=== PATIENT | male | born 1985 | race Caucasian/White ===

== ENCOUNTER 2017-07-04 16:59 | Emergency (ER) | payer SELFPAY ==
[2017-07-04] MEDS ORDERED: 0.9 % SODIUM CHLORIDE 1,000 ML BAG IV ONE (17:25)
[2017-07-04] MEDS ORDERED: ACETAMINOPHEN 1,000 MG/100 ML BTL IVPB ONE (17:30)
--- NOTE | 2017-07-04 17:32 | Emergency Department Record ---
History of Present Illness - General Chief complaint: Male Urogenital Problem Stated complaint: SWOLLEN TESTICLE Time Seen by Provider: 07/04/17 17:19 Source: Patient Mode of Arrival: Ambulatory Limitations: No limitations - History of Present Illness Initial comments: 31 yo male presents with right testicular pain and swelling. The onset was 2 days ago. He denies any trauma. The onset and progression have be very gradual. He was unaware of any fevers. He denies any difficulty with urination. No dysuria. No changes in bowel movements. No diarrhea. No retention. He reports a history of similar several years ago but he is unsure of the diagnosis. No rash. The left testicle is essentially not symptomatic. PCP Wulff. JOHNSON Complaint: Testicle pain Onset/Timin -: Days(s) Location: Right testicle Severity: Moderate Severity scale (1-10): 8 Quality: Sharp, Stabbing Consistency: Constant Improves with: None Worsens with: None Reports: Swelling, Other - Related Data Previous Rx's Medication Instructions Recorded Doxycycline Hyclate [Doxycycline] 100 mg PO BID #20 cap 07/04/17 Hydrocodone/Acetaminophen [[place] 1 tab PO Q6H PRN #15 tab 07/04/17 5mg/325mg] Ibuprofen [Motrin 600Mg] 600 mg PO Q6H #25 tablet 07/04/17 Allergies Allergy/AdvReac Type Severity Reaction Status Date / Time No Known Drug Allergies Allergy Verified 05/03/16 15:05 Travel Screening - Travel/Exposure Within Last 30 Days Have you traveled within the last 30 days?: No - Travel/Exposure Within Last Year Have you traveled outside the [place] in the last year?: No - Additonal Travel Details Have you been exposed to anyone with a communicable illness?: No - Travel Symptoms Symptom Screening: None Review of Systems Constitutional: Reports: Chills, Fever. Denies: Malaise, Weakness Eyes: Denies: Eye discharge, Eye pain, Photophobia, Vision change ENT: Denies: Congestion, Throat pain Respiratory: Denies: Cough, Dyspnea, Hemoptysis, Stridor, Wheezes Cardiovascular: Denies: Chest pain, Palpitations, Syncope Endocrine: Denies: Fatigue Gastrointestinal: Reports: Abdominal pain, Nausea. Denies: Diarrhea, Vomiting Genitourinary: Reports: Testicular pain. Denies: Dysuria, Frequency, Hematuria , Urgency Musculoskeletal: Denies: Arthralgia, Back pain, Myalgia, Neck pain Skin: Denies: Bruising, Change in color, Rash Neurological: Denies: Numbness, Weakness Psychiatric: Denies: Anxiety Hematological/Lymphatic: Denies: Blood Clots, Easy bleeding, Easy bruising, Swollen glands Past Medical History - SOCIAL HISTORY Smoking Status: Former smoker Alcohol Use: None Drug Use: None - RESPIRATORY Hx Respiratory Disorders: No - CARDIOVASCULAR Hx Cardio Disorders: No - NEURO Hx Neuro Disorders: Yes Comment:: ADD - GI Hx GI Disorders: Yes Hx Obstructive Bowel: Yes - Hx Genitourinary Disorders: No - ENDOCRINE Hx Endocrine Disorders: No - MUSCULOSKELETAL Hx Musculoskeletal Disorders: No - PSYCH Hx Psych Problems: Yes Hx Anxiety: Yes - HEMATOLOGY/ONCOLOGY Hx Hematology/Oncology Disorders: No Family Medical History Any Significant Family History?: No Physical Exam - General General Appearance: Alert, Oriented x3, Cooperative, No acute distress Limitations: No limitations - Head Head exam: Atraumatic, Normocephalic, Normal inspection - Eye Eye exam: Normal appearance. negative: Conjunctival injection, Periorbital swelling - ENT ENT exam: Normal exam, Mucous membranes moist Ear exam: Normal external inspection Nasal Exam: Normal inspection Mouth exam: Normal external inspection Teeth exam: Normal inspection - Neck Neck exam: Normal inspection - Respiratory Respiratory exam: Normal lung sounds bilaterally. negative: Chest wall tenderness, Rhonchi, Stridor, Wheezes - Cardiovascular Cardiovascular Exam: Normal rhythm, Normal heart sounds, Tachycardia - GI/Abdominal GI/Abdominal exam: Soft. negative: Distended, Guarding, Rebound, Rigid, Tenderness - exam: Circumcision, Scrotal swelling (mild right sided scrotal swelliing, intact skin, the testicle on palpation feels mildly enlarged, it is mobile, with mild pain, cremasteric reflex is equivocal bilateral, left testicle is non tender) - Extremities Extremities exam: Normal inspection. negative: Tenderness - Back Back exam: Denies: CVA tenderness (R), CVA tenderness (L), Paraspinal tenderness , Rash noted, Tenderness - Neurological Neurological exam: Alert, Normal gait, Oriented X3 - Psychiatric Psychiatric exam: Normal affect, Normal mood. negative: Agitated, Anxious - Skin Skin exam: Dry, Intact, Normal color, Warm Course Vital Signs 07/04/17 17:06 Temperature 101.6 F H Pulse Rate 114 H Respiratory 20 Rate Blood Pressure 134/86 Pulse Ox 96 - Reevaluation(s) Reevaluation #1: The patient was seen and examined UA, US, labs and medications ordered His pain is mild at this time 07/04/17 17:32 Reevaluation #2: CBC, CMP, and UA were reviewed No acute changes 07/04/17 18:43 Reevaluation #3: Flow noted to both testees with bilateral hydro and varicoceles. Minimal increased flow on the right Clinically this may represents epididymitis He will be place on NSAIDS and antibiotic with recommendation for scrotal support with supportive underwear 07/04/17 19:27 Medical Decision Making - Lab Data Result diagrams: 07/04/17 17:47 07/04/17 17:47 Disposition Disposition: Discharge Clinical Impression: Epididymitis Disposition: Home, Self-Care Condition: (1) Good Instructions: Epididymitis (ED) Additional Instructions: Return tomorrow for a recheck Return sooner if worse, increased pain, or any new concerns Wear supportive underwear Take the antibiotics until gone Call your doctor tomorrow for close follow up Prescriptions: Doxycycline Hyclate [Doxycycline] 100 mg PO BID #20 cap Hydrocodone/Acetaminophen [[place] 5mg/325mg] 1 tab PO Q6H PRN #15 tab PRN Reason: Pain - General Ibuprofen [Motrin 600Mg] 600 mg PO Q6H #25 tablet Forms: Patient Portal Access Time of Disposition: 19:33 Quality - Quality Measures Quality Measures: N/A - Blood Pressure Screening Does Patient Have Any of the Following: No Blood Pressure Classification: Pre-Hypertensive BP Reading Systolic Measurement: 134 Diastolic Measurement: 86 Screening for High Blood Pressure: < Pre-Hypertensive BP, F/U Documented > [ G8950] Pre-Hypertensive Follow-up Interventions: Referral to alternative/primary care provider.
[2017-07-04 17:57] LABS: BASO % 0.5 % (0-6); EOS % 0.7 % (0-6); GRAN % 67.4 % (47-80); HEMATOCRIT 41.9 % (42.0-52.0); HEMOGLOBIN 14.8 gm/dl (14.0-18.0); LYMPH % 20.6 % (16-45); MEAN CELL VOLUME 83.3 fl (81-97); MEAN CORPUSCULAR HEMOGLOBIN 29.4 pg (27-33); MEAN CORPUSCULAR HGB CONC 35.3 g/dl (32-36); MEAN PLATELET VOLUME 10.2 fl (7.4-10.4); MONO % 10.8 % (0-9); PLATELET COUNT 182 K/uL (130-400); RED BLOOD COUNT 5.03 M/uL (4.40-5.70)
[2017-07-04 18:00] LABS: URINE APPEARANCE CLEAR; URINE BILIRUBIN NEGATIVE (NEGATIVE); URINE BLOOD NEGATIVE (NEGATIVE); URINE COLOR YELLOW; URINE GLUCOSE (UA) NEGATIVE (NEGATIVE); URINE KETONE NEGATIVE (NEGATIVE); URINE LEUKOCYTE ESTERASE NEGATIVE (NEGATIVE); URINE NITRITE NEGATIVE (NEGATIVE); URINE PROTEIN NEGATIVE (NEGATIVE); URINE UROBILINOGEN 0.2 E.U./dL (0.20 - 1.00)
[2017-07-04 18:15] LABS: ALB/GLOB RATIO 1.5 (1.1-1.8); ALBUMIN 4.3 g/dL (4.0-5.0); ALKALINE PHOSPHATASE 89 U/L (40-129); ALT/SGPT 43 U/L (<41); AST/SGOT 22 U/L (10.0-50.0); BLOOD UREA NITROGEN 23.9 mg/dL (12.6-42.6); CREATININE 0.8 mg/dL (0.7-1.2); EST GLOMERULAR FILTRATION RATE > 60 mL/min; GLUCOSE,RANDOM 90 mg/dL (74-109); TOTAL PROTEIN 7.1 g/dL (6.6-8.7)
[2017-07-04] MEDS ORDERED: CEFTRIAXONE SODIUM 1 GM in 0.9 % SODIUM CHLORIDE 100ML 100 ML IVPB ONE (18:43)
--- NOTE | 2017-07-05 15:08 | ULTRASOUND REPORT ---
EXAM: SCROTAL ULTRASOUND HISTORY: RIGHT SIDED PAIN. TECHNIQUE: Transverse and longitudinal sonographic images of the testes were obtained. Comparison: None. FINDINGS: The right testi measures 3.3 x 5.5 x 3.1 cm. The left testi measures 2.9 x 5.0 x 3.0 cm. Negative for intratesticular mass. Doppler and spectral analysis with color flow was utilized. Arterial and venous flow to both testes. There are bilateral hydroceles. Low level echoes within the hydrocele suggest slight complexity. Subcentimeter bilateral epididymal head cysts are noted. The epididymides are otherwise unremarkable. Small varicoceles are suggested bilaterally as well. IMPRESSION: SMALL SLIGHTLY COMPLEX BILATERAL HYDROCELES. BILATERAL VARICOCELES ARE ALSO NOTED. BILATERAL SUBCENTIMETER EPIDIDYMAL HEAD CYSTS. NEGATIVE FOR INTRATESTICULAR MASS. ARTERIAL AND VENOUS FLOW TO BOTH TESTES. JOB NUMBER: [id number] [facility]
== END 2017-07-04 19:55 | disposition home or self-care (01) ==
LOC: ER 16:59
DX: N45.1 Epididymitis (principal); N50.811 Right testicular pain
CPT/HCPCS: 76870; 80053; 81003; 85025; 99283; 99284; J7030

== ENCOUNTER 2018-04-11 07:07 | Emergency (ER) | payer BC ==
[2018-04-11] MEDS ORDERED: ONDANSETRON HCL IV 4 MG/2 ML VIAL IVP ONE (07:32)
[2018-04-11] MEDS ORDERED: KETOROLAC 30 MG/ML VIAL IVP ONE (07:32)
--- NOTE | 2018-04-11 07:39 | Emergency Department Record ---
History of Present Illness - General Chief Complaint: Headache Migraine Stated Complaint: MIGRAINE Time Seen by Provider: 04/11/18 07:28 Source: Patient, RN notes reviewed Mode of Arrival: Ambulatory - History of Present Illness Initial Comments: Severe headache for 48 hours and vomiting time two and nausea and some sinus congestion and no history of headaches but he had vertigo 2 weeks ago at [facility] and treated with antivert and no imaging done and he states he has had vertigo symptoms on and off for one year and his balance is off. Complaint: Headache Onset/Timin -: Days(s) Onset Description: Sudden Location: Diffuse Quality: Aching Consistency: Constant Improves With: Nothing Worsens With: None Associated Symptoms: Nausea, Vomiting Treatments Prior to Arrival: Other - Related Data Previous Rx's Medication Instructions Recorded Cyclobenzaprine HCl [Flexeril] 5 mg PO TID #20 tab 04/11/18 Naproxen [Naprosyn] 500 mg PO BID #20 tablet 04/11/18 Allergies Allergy/AdvReac Type Severity Reaction Status Date / Time No Known Drug Allergies Allergy Verified 04/11/18 07:11 Travel Screening - Travel/Exposure Within Last 30 Days Have you traveled within the last 30 days?: No Review of Systems Reviewed: No additional complaints except as noted below Constitutional: Reports: As per HPI. Denies: Chills, Fever, Malaise, Night sweats, Weakness, Weight change Eyes: Reports: As per HPI. Denies: Eye discharge, Eye pain, Photophobia, Vision change ENT: Reports: As per HPI. Denies: Congestion, Dental pain, Ear pain, Epistaxis , Hearing loss, Throat pain Respiratory: Reports: As per HPI. Denies: Cough, Dyspnea, Hemoptysis, Stridor, Wheezes Cardiovascular: Reports: As per HPI. Denies: Arrhythmia, Chest pain, Dyspnea on exertion, Edema, Murmurs, Orthopnea, Palpitations, Paroxysmal nocturnal dyspnea, Rheumatic Fever, Syncope Endocrine: Reports: As per HPI. Denies: Fatigue, Heat or cold intolerance, Polydipsia, Polyuria Gastrointestinal: Reports: As per HPI, Nausea, Vomiting. Denies: Abdominal pain , Constipation, Diarrhea, Hematemesis, Hematochezia, Melena Genitourinary: Reports: As per HPI. Denies: Dysuria, Frequency, Hematuria, Incontinence, Retention, Testicular pain, Testicular mass, Urgency Musculoskeletal: Reports: As per HPI. Denies: Arthralgia, Back pain, Gout, Joint swelling, Myalgia, Neck pain Skin: Reports: As per HPI. Denies: Bruising, Change in color, Change in hair/ nails, Lesions, Pruritus, Rash Neurological: Reports: As per HPI, Headache, Vertigo. Denies: Abnormal gait, Confusion, Numbness, Paresthesias, Seizure, Tingling, Tremors, Weakness Psychiatric: Reports: As per HPI. Denies: Anxiety, Auditory hallucinations, Depression, Homicidal thoughts, Suicidal thoughts, Visual hallucinations Hematological/Lymphatic: Reports: As per HPI. Denies: Anemia, Blood Clots, Easy bleeding, Easy bruising, Swollen glands Past Medical History - SOCIAL HISTORY Smoking Status: Former smoker Alcohol Use: None Drug Use: None - RESPIRATORY Hx Respiratory Disorders: No - CARDIOVASCULAR Hx Cardio Disorders: No - NEURO Hx Neuro Disorders: No - GI Hx GI Disorders: Yes Hx Obstructive Bowel: Yes - Hx Genitourinary Disorders: No - ENDOCRINE Hx Endocrine Disorders: No - MUSCULOSKELETAL Hx Musculoskeletal Disorders: No - PSYCH Hx Psych Problems: Yes Hx Anxiety: Yes - HEMATOLOGY/ONCOLOGY Hx Hematology/Oncology Disorders: No Family Medical History Any Significant Family History?: No Physical Exam - General General Appearance: Alert, Oriented x3, Cooperative, Moderate distress - Head Head exam: Normal inspection - Eye Eye exam: Normal appearance, PERRL Pupils: Normal accommodation - ENT ENT exam: Normal exam, Mucous membranes moist, Normal external ear exam, Normal orophraynx, TM's normal bilaterally Ear exam: Normal external inspection. negative: External canal tenderness Nasal Exam: Normal inspection. negative: Discharge, Sinus tenderness Mouth exam: Normal external inspection, Tongue normal Teeth exam: Normal inspection. negative: Dental caries Throat exam: Normal inspection. negative: Tonsillar erythema, Tonsillar exudate - Neck Neck exam: Normal inspection, Full ROM. negative: Tenderness - Respiratory Respiratory exam: Normal lung sounds bilaterally. negative: Respiratory distress - Cardiovascular Cardiovascular Exam: Regular rate, Normal rhythm, Normal heart sounds - GI/Abdominal GI/Abdominal exam: Soft, Normal bowel sounds. negative: Tenderness - Rectal Rectal exam: Deferred - exam: Deferred - Extremities Extremities exam: Normal inspection, Full ROM, Normal capillary refill. negative: Tenderness - Back Back exam: Reports: Normal inspection, Full ROM. Denies: Muscle spasm, Rash noted, Tenderness - Neurological Neurological exam: Alert, Normal gait, Oriented X3, Reflexes normal - Psychiatric Psychiatric exam: Normal affect, Normal mood - Skin Skin exam: Dry, Intact, Normal color, Warm Course Vital Signs 04/11/18 07:13 Temperature 98.9 F Pulse Rate 81 Respiratory 20 Rate Blood Pressure 145/107 Pulse Ox 98 Medical Decision Making - Data Complexity MDM Data: Labs Ordered and/or Reviewed (glucose 118), X-Ray Ordered and/or Reviewed (CT head negative) - Lab Data Result diagrams: 04/11/18 07:15 04/11/18 07:15 Disposition Clinical Impression: Headache Qualifiers: Headache type: unspecified Headache chronicity pattern: acute headache Intractability: not intractable Qualified Code(s): R51 - Headache Disposition: Home, Self-Care Condition: (1) Good Instructions: Tension Headache (ED), Acute Headache (ED) Additional Instructions: follow up with family Dr Prescriptions: Cyclobenzaprine HCl [Flexeril] 5 mg PO TID #20 tab Naproxen [Naprosyn] 500 mg PO BID #20 tablet Forms: Patient Portal Access Time of Disposition: 08:40 Quality - Quality Measures Quality Measures: N/A - Blood Pressure Screening Does Patient Have Any of the Following: No Blood Pressure Classification: Hypertensive Reading Systolic Measurement: 145 Diastolic Measurement: 107 Screening for High Blood Pressure: < Pre-Hypertensive BP, F/U Documented > [ G8950] Pre-Hypertensive Follow-up Interventions: Referral to alternative/primary care provider.
[2018-04-11] MEDS ORDERED: 0.9 % SODIUM CHLORIDE 1,000 ML BAG IV ONE (07:50)
[2018-04-11 07:53] LABS: BASO % 0.3 % (0-6); EOS % 1.8 % (0-6); GRAN % 57.7 % (47-80); HEMATOCRIT 49.6 % (42.0-52.0); HEMOGLOBIN 17.3 gm/dl (14.0-18.0); LYMPH % 31.2 % (16-45); MEAN CELL VOLUME 84.8 fl (81-97); MEAN CORPUSCULAR HGB CONC 34.9 g/dl (32-36); MEAN PLATELET VOLUME 11.2 fl (7.4-10.4); PLATELET COUNT 238 K/uL (130-400); RED BLOOD COUNT 5.85 M/uL (4.40-5.70); RED CELL DISTRIBUTION WIDTH 13.2 % (11.5-14.5); WHITE BLOOD COUNT W/O DIFF 7.8 K/uL (4.2-12.2)
[2018-04-11 07:54] LABS: MEAN CORPUSCULAR HEMOGLOBIN 29.5 pg (27-33)
[2018-04-11] MEDS ORDERED: 0.9 % SODIUM CHLORIDE 1000ML 1,000 ML IV SCH (08:00)
[2018-04-11 08:02] LABS: BLOOD UREA NITROGEN 14 mg/dL (6-20); CREATININE 0.7 mg/dL (0.7-1.2); EST GLOMERULAR FILTRATION RATE > 60 mL/min
[2018-04-11 08:05] LABS: GLUCOSE,RANDOM 118 mg/dL (74-109)
[2018-04-11] MEDS ORDERED: LORAZEPAM 2 MG/ML VIAL IV ONE (08:27)
[2018-04-11] MEDS ORDERED: ACETAMINOPHEN 500 MG TABLET PO ONE (08:27)
--- NOTE | 2018-04-12 10:37 | CT SCAN REPORT ---
EXAM: CT OF THE BRAIN HISTORY: MIGRAINE. TECHNIQUE: CT of the brain without contrast was obtained. Comparison: None. FINDINGS: The globes are intact. The paranasal sinuses and mastoid air cells are unremarkable. There is no displaced or depressed skull fracture. There is no intra or extraaxial hemorrhage. CT is limited for the evaluation of acute infarct. No CT evidence for large or territorial acute infarct. No mass or midline shift. IMPRESSION: NEGATIVE CT OF THE BRAIN EXAMINATION. JOB NUMBER: [id number] [facility]
== END 2018-04-11 09:11 | disposition home or self-care (01) ==
LOC: ER 07:07
DX: R51 Headache (principal); R11.2 Nausea with vomiting, unspecified; R42 Dizziness and giddiness; Z87.891 Personal history of nicotine dependence
CPT/HCPCS: 99284 ×2; 96374; 96375; 96361; 85025; 80048; 70450; J1885; J2405; J2060; J7030

== ENCOUNTER 2018-09-06 07:19 | Emergency (ER) | payer BC ==
[2018-09-06] MEDS ORDERED: ONDANSETRON 4 MG ODT TABLET SL ONE (07:36)
[2018-09-06] MEDS ORDERED: ONDANSETRON HCL IV 4 MG/2 ML VIAL IVP ONE (07:40)
--- NOTE | 2018-09-06 07:44 | Emergency Department Record ---
History of Present Illness - General Chief Complaint: Headache Migraine Stated Complaint: headache, vommiting Time Seen by Provider: 09/06/18 07:36 Source: Patient Mode of Arrival: Ambulatory - History of Present Illness Initial Comments: The patient got up this morning, and was fine when he got in the shower. He began coughing in the shower and developed a headache in the frontal portion of his head with nausea, and then vomiting. He took a fioricet which he was given by his PCP for his headaches, but he vomited it up. He has been evaluated by his PCP for headaches about 5 months ago He has a normal non-contrast head CT . His at the bedside says he gets these headaches approximately once monthly on the average. The patient denies fevers, chills, stiff neck, rashes , sore throat or other URI symptoms. He also has nausea and dry heaves. MD Complaint: "Migraine" Onset/Timin -: Minutes(s) Onset Description: Sudden Location: Frontal Severity scale (1-10): 10 Quality: Full Consistency: Constant Improves With: Nothing Treatments Prior to Arrival: Migraine medication - Related Data Allergies Allergy/AdvReac Type Severity Reaction Status Date / Time No Known Drug Allergies Allergy Verified 09/06/18 07:29 Travel Screening - Travel/Exposure Within Last 30 Days Have you traveled within the last 30 days?: No - Travel/Exposure Within Last Year Have you traveled outside the [place] in the last year?: No - Additonal Travel Details Have you been exposed to anyone with a communicable illness?: No - Travel Symptoms Symptom Screening: None Review of Systems Reviewed: No additional complaints except as noted below Constitutional: Reports: As per HPI. Denies: Chills, Fever, Malaise, Night sweats, Weakness, Weight change Eyes: Reports: As per HPI. Denies: Eye discharge, Eye pain, Photophobia, Vision change ENT: Reports: As per HPI. Denies: Congestion, Dental pain, Ear pain, Epistaxis , Hearing loss, Throat pain Respiratory: Reports: As per HPI. Denies: Cough, Dyspnea, Hemoptysis, Stridor, Wheezes Cardiovascular: Reports: As per HPI. Denies: Arrhythmia, Chest pain, Dyspnea on exertion, Edema, Murmurs, Orthopnea, Palpitations, Paroxysmal nocturnal dyspnea, Rheumatic Fever, Syncope Endocrine: Reports: As per HPI. Denies: Fatigue, Heat or cold intolerance, Polydipsia, Polyuria Gastrointestinal: Reports: As per HPI. Denies: Abdominal pain, Constipation, Diarrhea, Hematemesis, Hematochezia, Melena, Nausea, Vomiting Genitourinary: Reports: As per HPI. Denies: Dysuria, Frequency, Hematuria, Incontinence, Retention, Testicular pain, Testicular mass, Urgency Musculoskeletal: Reports: As per HPI. Denies: Arthralgia, Back pain, Gout, Joint swelling, Myalgia, Neck pain Skin: Reports: As per HPI. Denies: Bruising, Change in color, Change in hair/ nails, Lesions, Pruritus, Rash Neurological: Reports: As per HPI. Denies: Abnormal gait, Confusion, Headache, Numbness, Paresthesias, Seizure, Tingling, Tremors, Vertigo, Weakness Psychiatric: Reports: As per HPI. Denies: Anxiety, Auditory hallucinations, Depression, Homicidal thoughts, Suicidal thoughts, Visual hallucinations Hematological/Lymphatic: Reports: As per HPI. Denies: Anemia, Blood Clots, Easy bleeding, Easy bruising, Swollen glands Past Medical History - SOCIAL HISTORY Smoking Status: Never smoker Alcohol Use: None Drug Use: None - RESPIRATORY Hx Respiratory Disorders: No - CARDIOVASCULAR Hx Cardio Disorders: No - NEURO Hx Neuro Disorders: No Hx of Migraines: Yes Comment:: ADD - GI Hx GI Disorders: Yes Hx Obstructive Bowel: Yes - Hx Genitourinary Disorders: No - ENDOCRINE Hx Endocrine Disorders: No - MUSCULOSKELETAL Hx Musculoskeletal Disorders: No - PSYCH Hx Psych Problems: Yes Hx Anxiety: Yes - HEMATOLOGY/ONCOLOGY Hx Hematology/Oncology Disorders: No Family Medical History Any Significant Family History?: No Physical Exam - General General Appearance: Alert, Oriented x3, Cooperative, Moderate distress (dry heaves, moderate to severe discomfort over his forehead) - Head Head exam: Normal inspection - Eye Eye exam: Normal appearance, PERRL, EOMI. negative: Conjunctival injection, Nystagmus Pupils: Normal accommodation - ENT ENT exam: Normal exam, Mucous membranes moist, Normal external ear exam, Normal orophraynx, TM's normal bilaterally Ear exam: Normal external inspection. negative: External canal tenderness Nasal Exam: Normal inspection. negative: Discharge, Sinus tenderness Mouth exam: Normal external inspection, Tongue normal Teeth exam: Normal inspection. negative: Dental caries Throat exam: Normal inspection. negative: Tonsillar erythema, Tonsillar exudate - Neck Neck exam: Normal inspection, Full ROM. negative: Lymphadenopathy, Meningismus , Tenderness - Respiratory Respiratory exam: Normal lung sounds bilaterally. negative: Respiratory distress - Cardiovascular Cardiovascular Exam: Regular rate, Normal rhythm, Normal heart sounds - GI/Abdominal GI/Abdominal exam: Soft, Normal bowel sounds. negative: Tenderness - Rectal Rectal exam: Deferred - exam: Deferred - Extremities Extremities exam: Normal inspection, Full ROM, Normal capillary refill. negative: Calf tenderness, Pedal edema, Tenderness - Back Back exam: Reports: Normal inspection, Full ROM. Denies: CVA tenderness (R), CVA tenderness (L), Muscle spasm, Rash noted, Tenderness - Neurological Neurological exam: Alert, CN II-XII intact, Normal gait, Oriented X3. negative : Motor sensory deficit - Psychiatric Psychiatric exam: Normal affect, Normal mood - Skin Skin exam: Dry, Intact, Normal color, Warm Course Vital Signs 09/06/18 07:30 Temperature 97.1 F L Pulse Rate [ 68 Pulse Ox Probe] Respiratory 18 Rate Blood Pressure 171/122 [Left Arm] Pulse Ox 98 - Reevaluation(s) Reevaluation #1: Patient's dry heaves and nausea have resolved. Headache is still present but patient appears more comfortable. 09/06/18 08:23 Reevaluation #2: Patient appears comfortable. His headache is down from initial 10/10 to 7/10, his nausea is resolved. Repeat abdominal exam shows a soft and non-tender abdomen without distention . Blood pressure improved to 126/91.Will give ofirmev and then DC home with a work note. 09/06/18 08:40 09/06/18 08:42 Reevaluation #3: Headache is now down to a 5/10 and nausea continues to be resolved. Will DC home when ofirmev completed. 09/06/18 09:04 Medical Decision Making - Management Options MDM Management: No Additional Work-up Planned Disposition Disposition: Discharge Clinical Impression: Migraine Qualifiers: Migraine type: without aura Status migrainosus presence: without status migrainosus Intractability: not intractable Qualified Code(s): G43.009 - Migraine without aura, not intractable, without status migrainosus Disposition: Home, Self-Care Return To Work/School Note Provided: Yes Condition: (2) Stable Instructions: Migraine Headache (ED) Additional Instructions: Home, rest. Off work today(note given). Fluids. Continue present meds. Follow up with PCP as needed. Forms: Patient Portal Access Quality - Quality Measures Quality Measures: Headache (All Ages) - Headache: Neuroimaging Quality Measure: Measure #419: Overuse of Neuroimaging ICD10 Codes Entered: Yes Neurological Exam: Patient had a normal neurological exam. [G9535] Headache: Use of Neuroimaging: < CTA, CT, MRA or MRI was NOT ordered > [G9534] Medical Reason for Exam: Recent Onset of Severe Headache - Blood Pressure Screening Does Patient Have Any of the Following: No Blood Pressure Classification: Hypertensive Reading Systolic Measurement: 158 Diastolic Measurement: 116 Screening for High Blood Pressure: < Normal BP, F/U Not Required > [G8783]
[2018-09-06] MEDS ORDERED: KETOROLAC 30 MG/ML VIAL IVP ONE (07:46)
[2018-09-06] MEDS ORDERED: 0.9 % SODIUM CHLORIDE 1,000 ML BAG IV ONE (07:46)
[2018-09-06] MEDS ORDERED: DIPHENHYDRAMINE HCL 50 MG/ML VIAL IVP ONE (07:47)
[2018-09-06] MEDS ORDERED: ACETAMINOPHEN 1,000 MG/100 ML BTL IVPB ONE (08:42)
== END 2018-09-06 09:38 | disposition home or self-care (01) ==
LOC: ER 07:19
DX: G43.009 Migraine without aura, not intractable, without status migrainosus (principal); R11.2 Nausea with vomiting, unspecified; R05 Cough
CPT/HCPCS: 99284 ×2; 96365; 96375; 96361; J1885; J2405; J1200

== ENCOUNTER 2019-08-13 15:12 | Emergency (ER) | payer BC, MEDICAID ==
[2019-08-13] MEDS ORDERED: MORPHINE SULFATE 5 MG/ML VIAL IVP ONE (15:43)
[2019-08-13] MEDS ORDERED: KETOROLAC 30 MG/ML VIAL IVP ONE (15:43)
--- NOTE | 2019-08-13 15:44 | Emergency Department Record ---
History of Present Illness - General Chief Complaint: Abdominal Pain Stated Complaint: SHARP PAIN LT LOWER SIDE Time Seen by Provider: 08/13/19 15:26 Source: Patient, Family Mode of Arrival: Ambulatory Limitations: No limitations - History of Present Illness Initial Comments: 34 yo female presents with left sided pain. The onset was yesterday morning w aking up. The pain is sharp. He denies any injury. No fever, chills, nausea, vomiting, diarrhea, or dysuria. No hematuria. No rash. No history of renal stones. No history of GI disease. No fever. MD Complaint: Abdominal pain, Flank pain Onset/Timin -: Days(s) Location: L Flank, LLQ Radiation: L flank Migration to: L Flank Severity: Moderate Severity scale (1-10): 8 Quality: Sharp Consistency: Constant Improves With: Nothing Worsens With: Nothing Associated Symptoms: Denies other symptoms - Related Data Home Medications Medication Instructions Recorded Confirmed Last Taken Nadolol 20 mg PO DAILY 08/13/19 08/13/19 08/13/19 Previous Rx's Medication Instructions Recorded Cyclobenzaprine HCl [Flexeril] 10 mg PO TID #15 tablet 08/13/19 Naproxen [Naprosyn] 500 mg PO Q12H #20 tab. 08/13/19 Allergies Allergy/AdvReac Type Severity Reaction Status Date / Time No Known Drug Allergies Allergy Verified 08/13/19 15:17 Travel Screening - Travel/Exposure Within Last 30 Days Have you traveled within the last 30 days?: No - Travel/Exposure Within Last Year Have you traveled outside the [place] in the last year?: No - Additonal Travel Details Have you been exposed to anyone with a communicable illness?: No - Travel Symptoms Symptom Screening: None Review of Systems Constitutional: Denies: Chills, Fever, Malaise, Weakness Eyes: Denies: Eye discharge ENT: Denies: Congestion, Throat pain Respiratory: Denies: Cough, Dyspnea Cardiovascular: Denies: Chest pain, Palpitations, Syncope Endocrine: Denies: Fatigue, Polydipsia, Polyuria Gastrointestinal: Reports: As per HPI, Abdominal pain. Denies: Constipation, Diarrhea, Hematemesis, Hematochezia, Melena, Nausea, Vomiting Genitourinary: Denies: Dysuria, Frequency, Hematuria Musculoskeletal: Reports: Back pain. Denies: Arthralgia, Joint swelling, Myalgia, Neck pain Skin: Denies: Bruising, Change in color, Rash Neurological: Denies: Headache Psychiatric: Denies: Anxiety Hematological/Lymphatic: Denies: Easy bleeding, Easy bruising Past Medical History - SOCIAL HISTORY Smoking Status: Never smoker Alcohol Use: None Drug Use: None - RESPIRATORY Hx Respiratory Disorders: No - CARDIOVASCULAR Hx Cardio Disorders: No - NEURO Hx Neuro Disorders: No Hx of Migraines: Yes Comment:: ADD - GI Hx GI Disorders: Yes Hx Obstructive Bowel: Yes - Hx Genitourinary Disorders: No - ENDOCRINE Hx Endocrine Disorders: No - MUSCULOSKELETAL Hx Musculoskeletal Disorders: No - PSYCH Hx Psych Problems: Yes Hx Anxiety: Yes - HEMATOLOGY/ONCOLOGY Hx Hematology/Oncology Disorders: No Family Medical History Any Significant Family History?: No Physical Exam - General General Appearance: Alert, Oriented x3, Cooperative Limitations: No limitations - Head Head exam: Normal inspection - Eye Eye exam: Normal appearance, PERRL. negative: Conjunctival injection, Scleral icterus - ENT ENT exam: Normal exam, Mucous membranes moist Ear exam: Normal external inspection Nasal Exam: Normal inspection Mouth exam: Normal external inspection - Neck Neck exam: Normal inspection - Respiratory Respiratory exam: Normal lung sounds bilaterally. negative: Respiratory distress - Cardiovascular Cardiovascular Exam: Regular rate, Normal rhythm, Normal heart sounds - GI/Abdominal GI/Abdominal exam: Soft, Tenderness (mild tenderness LLQ to left flank). negative: Distended, Guarding, Rebound, Rigid - Rectal Rectal exam: Deferred - exam: Deferred - Extremities Extremities exam: Normal inspection. negative: Pedal edema, Tenderness - Back Back exam: Reports: CVA tenderness (L), Paraspinal tenderness, Tenderness. Denies: CVA tenderness (R), Full ROM, Rash noted, Vertebral tenderness - Neurological Neurological exam: Alert, Oriented X3 - Psychiatric Psychiatric exam: Normal affect, Normal mood. negative: Agitated, Anxious - Skin Skin exam: Dry, Intact, Normal color, Warm Course Vital Signs 08/13/19 15:22 Temperature 98.1 F Pulse Rate 72 Respiratory 18 Rate Blood Pressure 140/83 Pulse Ox 97 - Reevaluation(s) Reevaluation #1: 08/13/19 16:02 The UA is negative 08/13/19 16:09 The CBC is normal 08/13/19 16:42 The final radiology report was reviewed. No acute abnormality was noted. The incidental findings of diverticulosis without diverticulitis were noted and discussed with the patient. The patient was instructed to review these findings with their primary care provider for proper follow up. Medical Decision Making - Lab Data Result diagrams: 08/13/19 16:00 08/13/19 16:00 Disposition Disposition: Discharge Clinical Impression: Left flank pain Disposition: Home, Self-Care Condition: (1) Good Instructions: Flank Pain (ED) Additional Instructions: Review this ER visit and the tests performed with your family doctor Call your doctor for the next available follow up appointment Return to the ER for a recheck if worse, any new concerns or questions Take the prescriptions provided as directed Prescriptions: Cyclobenzaprine HCl [Flexeril] 10 mg PO TID #15 tablet Naproxen [Naprosyn] 500 mg PO Q12H #20 tab.dr Forms: Patient Portal Access Time of Disposition: 16:48 Quality - Quality Measures Quality Measures: N/A - Blood Pressure Screening Does Patient Have Any of the Following: No Blood Pressure Classification: Pre-Hypertensive BP Reading Systolic Measurement: 125 Diastolic Measurement: 78 Screening for High Blood Pressure: < Pre-Hypertensive BP, F/U Documented > [G8950] Pre-Hypertensive Follow-up Interventions: Referral to alternative/primary care provider.
[2019-08-13 15:48] LABS: URINE APPEARANCE CLEAR; URINE BILIRUBIN NEGATIVE (NEGATIVE); URINE BLOOD NEGATIVE (NEGATIVE); URINE COLOR YELLOW; URINE GLUCOSE (UA) NEGATIVE (NEGATIVE); URINE KETONE NEGATIVE (NEGATIVE); URINE LEUKOCYTE ESTERASE NEGATIVE (NEGATIVE); URINE NITRITE NEGATIVE (NEGATIVE); URINE PROTEIN NEGATIVE (NEGATIVE); URINE UROBILINOGEN 0.2 E.U./dL (0.20 - 1.00)
[2019-08-13 16:06] LABS: BASO % 0.5 % (0-6); EOS % 4.6 % (0-6); GRAN % 44.7 % (47-80); HEMOGLOBIN 15.3 gm/dl (14.0-18.0); LYMPH % 39.8 % (16-45); MEAN CELL VOLUME 84.6 fl (81-97); MEAN CORPUSCULAR HEMOGLOBIN 29.4 pg (27-33); MEAN CORPUSCULAR HGB CONC 34.8 g/dl (32-36); MEAN PLATELET VOLUME 10.6 fl (7.4-10.4); MONO % 10.4 % (0-9); PLATELET COUNT 246 K/uL (130-400); RED CELL DISTRIBUTION WIDTH 12.9 % (11.5-14.5); WHITE BLOOD COUNT W/O DIFF 8.3 K/uL (4.2-12.2)
[2019-08-13 16:14] LABS: BLOOD UREA NITROGEN 12 mg/dL (6-20)
[2019-08-13 16:15] LABS: CREATININE 0.7 mg/dL (0.7-1.2); EST GLOMERULAR FILTRATION RATE > 60 mL/min; TOTAL PROTEIN 6.8 g/dL (6.6-8.7)
[2019-08-13 16:17] LABS: GLUCOSE,RANDOM 114 mg/dL (74-109)
[2019-08-13 16:20] LABS: ALB/GLOB RATIO 1.7 (1.1-1.8); ALBUMIN 4.3 g/dL (4.0-5.0); ALKALINE PHOSPHATASE 92 U/L (40-129); ALT/SGPT 36 U/L (<41); AST/SGOT 20 U/L (10.0-50.0)
--- NOTE | 2019-08-13 16:29 | CT SCAN REPORT ---
EXAMINATION: CT Abdomen and Pelvis without IV Contrast EXAM DATE: 08/13/2019 4:21 PM TECHNIQUE: Standard protocol CT imaging of the abdomen and pelvis was performed without intravenous c ontrast. INDICATION: left flank pain COMPARISON: 2011 CT scan. ENCOUNTER: Not applicable CT ABDOMEN AND PELVIS FINDINGS: Lung Bases: Included extent of the lung bases are clear. Hepatobiliary: The liver has a normal size with a smooth surface. Normal gallbladder. Pancreas: The pancreas is normal. Spleen: The spleen is not enlarged. Adrenals: The adrenal glands are normal. Gastrointestinal: The stomach and small bowel are normal with no obstruction or inflammation. Normal appendix. Mild colonic diverticulosis without evidence of diverticulitis. Reproductive Organs: Unremarkable Lymphatic System: There is no adenopathy within the abdomen or pelvis. Vasculature: Normal caliber abdominal aorta Peritoneum: No free fluid, free air, or inflammation Assessment of the solid organs, soft tissues, and vascular structures is overall limited on noncontra st imaging, IMPRESSION: 1. No acute findings within the abdomen or pelvis. 2. No urinary tract calculi or hydronephrosis. 3. Mild colonic diverticulosis without evidence of diverticulitis. Dictated by: Eric Palmer MD on 08/13/2019 4:26 PM. .
== END 2019-08-13 16:55 | disposition home or self-care (01) ==
LOC: ER 15:12
DX: R10.32 Left lower quadrant pain (principal)
CPT/HCPCS: 74176; 80053; 81003; 85025; 96374; 96375; 99284; J1885